=== PATIENT | male | born 1970 | race Caucasian/White ===

== ENCOUNTER 2017-09-18 13:23 | Outpatient (CLI) | payer BC ==
--- NOTE | 2017-09-18 15:30 | ULT ---
RIGHT LOWER EXTREMITY VENOUS DOPPLER ULTRASOUND: Date: 09/18/17 COMPARISON: None. HISTORY: Right lower extremity pain, swelling, and edema, assess for deep venous thrombosis. TECHNIQUE: Multiplanar Rivera scale sonographic imaging of the venous structures of the right lower extremity obta ined with color flow and spectral analysis. FINDINGS: The right common femoral vein, greater saphenous vein, profunda femoral vein, femoral vein, popliteal vein, and posterior tibial vein are patent. There is normal blood flow, augmentation, and compressio n within the deep venous system on the right with no evidence for deep venous thrombosis of the right lower extremity. There is an oval, heterogeneously hypoechoic, complex cystic lesion in the popliteal fossa on the rig ht measuring 3.7 x 1.3 x 1.8 cm suggesting a complex Gayle's cyst. 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 No evidence for deep venous thrombosis of the right lower extremity. POS: [facility]
== END 2017-09-18 13:24 | disposition home or self-care (01) ==
LOC: ULT 13:23
PROVIDERS: ATTEND Family Medicine
DX: M25.561 Pain in right knee (principal); R60.0 Localized edema